=== PATIENT | male | born 1975 | race Caucasian/White ===

== ENCOUNTER 2020-02-01 12:07 | Inpatient (IN) | payer OTHER ==
[2020-02-01] VITALS (11 sets, daily range): BP systolic 134–149; BP diastolic 78–99; PULSE 84–106; TEMP 98.3–98.9
[~2020-02-01] VITALS: Ht 185.4 cm; Wt 125.5 kg
[2020-02-01] MEDS ORDERED: LANTUS100 U/ML SQ (12:21)
[2020-02-01] MEDS ORDERED: GLUCOPHAGE1000 MG PO (12:21)
[2020-02-01] MEDS ORDERED: PRILOSEC 20MG20 MG PO (12:23)
[2020-02-01] MEDS ORDERED: MOTRIN 600600 MG/TAB PO (12:24)
--- NOTE | 2020-02-01 13:17 | NUR ---
Patient admitted into room 342. He is alert & oriented. Mother at bedside. Inital, 5 page, & med rec completed. Patient reports going to the doctor minimally, only if he has too. Blood sugar elevated-but he reports better than normal at 242. Ivf to Amanda from [facility] Will wait on to round.
--- NOTE | 2020-02-01 14:55 | NUR ---
PT BROUGHT DOWN TO CT IN WHEELCHAIR AND PLACED ON CT TABLE. MONITORING EQUIPMENT PLACED. IMAGES TAKEN AND SENT
--- NOTE | 2020-02-01 15:24 | NUR ---
0.5 MG VERSED AND 25 MCG FENTANYL GIVEN
--- NOTE | 2020-02-01 15:40 | NUR ---
PROCEDURE COMPLETED. FLUID COLLECTED IN STERILE CUP. MONITORING EQUIPMENT REMOVED. REPORT ACALLED TO SPENCER SAMUELS. MEDS GIVEN VERSED 1.5MG AND 75 MCG FENTANYL. ACCORDIAN DRAIN IN PLACE WITH REDDISH BROWN DRAINAGE. PT BACK TO FLOOR IN WHEECHAIR
--- NOTE | 2020-02-01 17:20 | NUR ---
1507 1 MG VERSED AND 50 MCG FENTANYL GIVEN
--- NOTE | 2020-02-01 19:45 | NUR ---
ASSESSMENT COMPLETE. RESTING IN BED. C/O OF "A LITTLE" PAIN RIGHT LOWER BACK R/T DRAIN INSERSTION. STATES THAT HE DOESN'T WANT ANY PAIN MEDICATION AND THAT HE WILL 'KEEP ON TOP OF IT". DENIES NEEDS AT THIS TIME.
--- NOTE | 2020-02-01 19:55 | NUR ---
Patient has done well since drain insertion, he was given one dose of Iv morphine for pain in buttocks. Iv antibioitcs as ordered & Ivf. He is tolerating clears. He remains in good spirits. Bedside report to night nurse
[2020-02-02 00:25] VITALS: BP 107/61; PULSE 81; TEMP 98.5
[2020-02-02 04:15] VITALS: BP 153/83; PULSE 78; TEMP 98.4
[2020-02-02 05:52] LABS: BASO % 0.2 % (0.0-2.0); EOS # 0.1 (0.0-0.7); EOS % 1.4 % (0-4.0); GRAN # 5.3 (1.4-6.5); HEMOGLOBIN 11.7 g/dl (13.5-18.0); LYMPH # 2.6 (1.2-3.4); LYMPH % 29.9 % (20.0-51.0); MEAN CELL VOLUME 78 fl (80.0-100.0); MEAN CORPUSCULAR HEMOGLOBIN 25 pg (27.0-31.0); MEAN CORPUSCULAR HGB CONC 32 g/dl (33.0-37.0); MEAN PLATELET VOLUME 10.6 fl (7.4-10.4); MONO # 0.6 (0.1-0.6); MONO % 7.3 % (1.7-9.3); PLATELET COUNT 316 K/mm3 (130-400); RED BLOOD COUNT 4.75 M/mm3 (4.20-5.60); REDCELL DISTRIBUTION WIDTH-CV 14.5 % (11.5-14.5)
[2020-02-02 05:54] LABS: HEMATOCRIT 36.9 % (42.0-52.0)
[2020-02-02 06:00] LABS: CALCIUM 8.9 mg/dL (8.4-10.2); CREATININE, serum 0.67 (0.66-1.25); POTASSIUM 3.9 mmol/L (3.4-5.0)
[2020-02-02 07:52] VITALS: BP 130/98; PULSE 90; TEMP 97.7
--- NOTE | 2020-02-02 08:00 | NUR ---
PATIENT IS A&O. VSS. TELE INPLACE. REPORTS ABD PAIN IS CURRENTLY WELL MANAGED. DENIES NEED FOR PAIN MEDS AT THIS TIME. PATIENT ASKING ABOUT ADVANCING HIS DIET TODAY. NURSING REFERRED TO SURGEON. TO ROUND SOON. ABD IS ROUND, SOFT AND WITH POSITIVE BOWL SOUNDS. PATIENT REPORTS HE IS PASSING GAS AND HAS HAD SOME LOOSE STOOLS. NO C/O N/V. AM BS WAS 150, NO SSI REQUIRED. TOLERATING LIQUIDS WELL. IV FLUIDS INFUSING INTO RIGHT WRIST IV. PATIENT VOIDING SUFFICENT AMOUNTS. HEAD TO TOE ASSESSMENT WNL. PATIENT INDEPENDENT IN ROOM. NO OTHER NEEDS.
[2020-02-02 11:22] VITALS: BP 138/52; PULSE 77; TEMP 97.4
--- NOTE | 2020-02-02 14:24 | NUR ---
Plan: To return home in [place]. Patient resides Alone. Assess: Patient rpeorts that he lives close to his mother and if he needs help he can call her. Patient reports that he may not be able to get his medications and usually fills the at [facility] in [place]. Patient shares that his PCP is Maite Galindo. EMR contact is Pamela Oreilly (Mother) . Patient denies the use of HHS or having a POA. Action: Educated on supports and services available to him . SW offered medication voucher if had to obtain medications. Educated on location and Pharmacy.
[2020-02-02 15:49] VITALS: BP 94/59; PULSE 93; TEMP 97.7
[2020-02-02 20:25] VITALS: BP 155/96; PULSE 102; TEMP 98.3
[2020-02-03 04:09] VITALS: BP 133/71; PULSE 69; TEMP 97.7
--- NOTE | 2020-02-03 05:25 | NUR ---
THERE WERE 20 mL OF DRAINAGE IN ACCORDION DRAIN AT BEGINNING OF SHIFT. NO NEW DRAINAGE OF 0400 THIS MORNING. PT [facility] BE[facility]. AFEBRILE.
--- NOTE | 2020-02-03 07:00 | NUR ---
Report received from ARVIND [place]. PT in bed resting, feeling well, denies needs, will continue to monitor.
[2020-02-03 07:34] VITALS: BP 147/73; PULSE 87; TEMP 97.7
--- NOTE | 2020-02-03 08:00 | NUR ---
Assessment charted. Pt feeling well, drain above R buttock is draining small amount of SS fluid. Pt states pain is better now but denies need to take any medication. Resting at sideo f bed with IV antibiotics to RW. Anticipating getting drain d/c'd today if possible. Will continue to monitor.
[2020-02-03 10:05] LABS: HEMATOCRIT 37.6 % (42.0-52.0); HEMOGLOBIN 11.8 g/dl (13.5-18.0); MEAN CELL VOLUME 78 fl (80.0-100.0); MEAN CORPUSCULAR HEMOGLOBIN 24 pg (27.0-31.0); MEAN CORPUSCULAR HGB CONC 31 g/dl (33.0-37.0); MEAN PLATELET VOLUME 10.5 fl (7.4-10.4); PLATELET COUNT 343 K/mm3 (130-400); RED BLOOD COUNT 4.83 M/mm3 (4.20-5.60); REDCELL DISTRIBUTION WIDTH-CV 14.5 % (11.5-14.5)
[2020-02-03 10:42] LABS: ANISOCYTOSIS 1+; BAND 3 % (0-10); EOSINOPHIL 4 % (0-4); NEUTROPHILS 53 % (42.0-75.2); PLATELET ESTIMATE NORMAL (NORMAL); SPHEROCYTE 1+
[2020-02-03 11:04] LABS: LYMPHOCYTE 33 % (20.0-51.0)
[2020-02-03 11:43] VITALS: BP 155/89; PULSE 72; TEMP 98.7
[2020-02-03 16:14] VITALS: BP 143/87; PULSE 72; TEMP 98.4
--- NOTE | 2020-02-03 18:19 | NUR ---
Pt has done well over shift. Resting in bed quietly after showering today. Per pt he "hasnt felt this good in weeks". PRN pain meds givenx1 per request. Will give bedside shift report to vishal jolly who will resume care.
--- NOTE | 2020-02-03 19:00 | NUR ---
PATIENT RESTING IN BED DURING CHANGE OF SHIFT REPORT FROM DAY SHIFT NURSE. REPORTS PAIN MEDS GIVEN EARLIER IS "BRINGING IT DOWN" REFERING TO PAIN LEVEL TO RIGHT LOWER BACK/UPPER BUTTOCK PAIN. DENIES ANY NEEDS DURING TIME OF REPORT. UP INDEPENDENTLY IN ROOM/HALLS.
[2020-02-03 20:09] VITALS: BP 154/95; PULSE 88; TEMP 97.5
[2020-02-04 00:21] VITALS: BP 150/83; PULSE 71; TEMP 98.2
--- NOTE | 2020-02-04 02:00 | NUR ---
PATIENT RESTING WITH EYES CLOSED, BREATHING NONLABORED AND EVEN. DOES NOT AWAKEN WHEN ROOM ENTERED BY STAFF. UP INDEPENDENTLY IN ROOM WITH NO PROBLEMS.
[2020-02-04 05:05] VITALS: BP 106/65; PULSE 74; TEMP 97.8
[2020-02-04 07:32] VITALS: BP 138/72; PULSE 86; TEMP 97.1
--- NOTE | 2020-02-04 08:00 | NUR ---
Patient resting in bed at this time. Patient rouses easily and is alert and oriented while awake. Dressing to drain site is CDI. Patient denies pain or needs at this time, call light within reach.
--- NOTE | 2020-02-04 08:13 | NUR ---
PATIENT SITTING ON SIDE OF BED DURING CHANGE OF SHIFT REPORT GIVEN TO DAY SHIFT NURSE. IV MED INFUSING WITH NO PROBLEMS.
[2020-02-04 10:01] LABS: CALCIUM 8.9 mg/dL (8.4-10.2); CREATININE, serum 0.81 (0.66-1.25)
[2020-02-04 11:40] VITALS: BP 151/87; PULSE 84; TEMP 97.8
[2020-02-04] MEDS ORDERED: AMOXICILLIN 8751 TAB PO (15:45)
[2020-02-04 15:53] VITALS: BP 155/99; PULSE 75; TEMP 98.4
--- NOTE | 2020-02-04 16:27 | NUR ---
Discharge teaching completed. Discharge instructions, discharge medications, and follow up appointments were discussed. Patient verbalized understaning and denies questions or concerns. Patient escorted to ED entrance where he entered a private vehicle.
== END 2020-02-04 16:31 | disposition home or self-care (01) | DRG 373 ==
LOC: SURG 12:07
PROVIDERS: Student in an Organized Health Care Education/Training Program; ADMIT Surgery
PROC: 0W9G30Z Drainage of Peritoneal Cavity with Drainage Device, Percutaneous Approach (ICD-10-PCS; principal; 2020-02-01)
DX: K65.1 Peritoneal abscess (principal); E11.9 Type 2 diabetes mellitus without complications; E66.9 Obesity, unspecified; I10 Essential (primary) hypertension; B96.20 Unspecified Escherichia coli [E. coli] as the cause of diseases classified elsewhere; Z68.36 Body mass index [BMI] 36.0-36.9, adult; Z79.4 Long term (current) use of insulin; Z87.891 Personal history of nicotine dependence
CPT/HCPCS: 99222; 99232-AI; C1729; J1815; J1956; J2270; J2543; J7030

== ENCOUNTER 2020-03-28 20:06 | Inpatient (IN) | payer SELFPAY ==
[~2020-03-28] VITALS: Ht 185.4 cm; Wt 121.1 kg
[~2020-03-28 20:06] MED LIST: AMOXICILLIN 8751 TAB PO; GLUCOPHAGE1000 MG PO; LANTUS100 U/ML SQ; MOTRIN 600600 MG/TAB PO; PRILOSEC 20MG20 MG PO
--- NOTE | 2020-03-28 22:00 | NUR ---
Arrived via EMS. Lungs clear. Heart sounds normal. Bowels active x4. Pulses present throughout. No edema noted. INT right hand without complications. Orientated patient to medical floor. Dr. Aponte and Kamryn LOU in room to see patient.
[2020-03-28] MEDS ORDERED: TYLENOL 8 HR PO (22:21)
[2020-03-28 22:36] VITALS: BP 151/94; PULSE 112; TEMP 98.4
[2020-03-28 23:36] VITALS: BP 151/85; PULSE 102; TEMP 98.7
--- NOTE | 2020-03-28 23:50 | NUR ---
Patient swabbed for COVID as ordered. Fluids started. Provided with dilaudid for 4/10 ABD pain. Denies other needs at this time.
[2020-03-29 00:02] LABS: LACTIC ACID 2.4 mmol/L (0.4-2.0)
[2020-03-29 03:49] VITALS: BP 134/90; PULSE 78; TEMP 98.2
--- NOTE | 2020-03-29 06:05 | NUR ---
Patient had uneventful night. Resting in bed this AM. Denies needs. Call light in reach.
--- NOTE | 2020-03-29 06:57 | NUR ---
Report given to ARVIND Nevarez
[2020-03-29 09:36] VITALS: BP 142/87; PULSE 80; TEMP 98.2
--- NOTE | 2020-03-29 09:53 | NUR ---
Pt awake and alert upon entry, no C/O pain at this time, shift assessments complete, left Pt call light in reach, bed in lowest position.
[2020-03-29 10:05] LABS: BASO % 0.4 % (0.0-2.0); EOS # 0.1 (0.0-0.7); EOS % 1.1 % (0-4.0); GRAN # 5.3 (1.4-6.5); GRAN % 65.1 % (42.2-75.2); HEMATOCRIT 41.4 % (42.0-52.0); HEMOGLOBIN 13.4 g/dl (13.5-18.0); LYMPH # 2.1 (1.2-3.4); LYMPH % 26.1 % (20.0-51.0); MEAN CELL VOLUME 75 fl (80.0-100.0); MEAN CORPUSCULAR HEMOGLOBIN 24 pg (27.0-31.0); MEAN CORPUSCULAR HGB CONC 32 g/dl (33.0-37.0); MONO # 0.6 (0.1-0.6); MONO % 7.2 % (1.7-9.3); PLATELET COUNT 425 K/mm3 (130-400); RED BLOOD COUNT 5.54 M/mm3 (4.20-5.60); REDCELL DISTRIBUTION WIDTH-CV 15.9 % (11.5-14.5)
[2020-03-29 10:11] LABS: CALCIUM 8.4 mg/dL (8.4-10.2); CREATININE, serum 0.67 (0.66-1.25)
[2020-03-29 12:03] VITALS: BP 147/85; PULSE 18; TEMP 98.4
[2020-03-29 16:15] VITALS: BP 151/87; PULSE 86; TEMP 98.5
--- NOTE | 2020-03-29 19:10 | NUR ---
Pt resting in the room, no C/O pain throughout the day, Pt has been OOB adlib today. VS have remained stable.
[2020-03-29 20:27] VITALS: BP 154/89; PULSE 76; TEMP 97.4
--- NOTE | 2020-03-29 20:35 | NUR ---
Resting in bed. Assessment complete. Bases bilaterally dimished otherwise clear. Heart sounds normal. Bowels active x4. Pulses strong throughout. No edema noted. IV right hand infusing without difficulty. Reports intermittent pain across ABD. Denies need for intervention at this time. Denies other needs. call light in reach. Will monitor.
[2020-03-29 23:33] VITALS: BP 150/98; PULSE 67; TEMP 98
--- NOTE | 2020-03-30 | NUR ---
Resting in bed. Denies needs. Call light in reach.
--- NOTE | 2020-03-30 04:00 | NUR ---
Patient resting in bed. Denies needs. Call light in reach.
[2020-03-30 04:45] VITALS: BP 146/74; PULSE 68; TEMP 98.7
--- NOTE | 2020-03-30 06:39 | NUR ---
Patient had uneventful night. Required x1 dose of dilaudid for pain control. Resting in this AM. Call light in reach.
--- NOTE | 2020-03-30 06:53 | NUR ---
Report given to ARVIND Nevarez
[2020-03-30 07:19] LABS: BASO % 0.3 % (0.0-2.0); EOS # 0.1 (0.0-0.7); EOS % 1.6 % (0-4.0); GRAN # 3.5 (1.4-6.5); HEMATOCRIT 41.9 % (42.0-52.0); HEMOGLOBIN 13.1 g/dl (13.5-18.0); LYMPH # 2.5 (1.2-3.4); LYMPH % 36.9 % (20.0-51.0); MEAN CELL VOLUME 77 fl (80.0-100.0); MEAN CORPUSCULAR HEMOGLOBIN 24 pg (27.0-31.0); MEAN CORPUSCULAR HGB CONC 31 g/dl (33.0-37.0); MEAN PLATELET VOLUME 10.3 fl (7.4-10.4); MONO # 0.6 (0.1-0.6); MONO % 8.9 % (1.7-9.3); PLATELET COUNT 383 K/mm3 (130-400); RED BLOOD COUNT 5.48 M/mm3 (4.20-5.60)
[2020-03-30 07:28] LABS: ALBUMIN 3.4 gm/dL (3.5-5.0); BILIRUBIN,TOTAL 0.5 mg/dL (0.0-1.0); CALCIUM 8.7 mg/dL (8.4-10.2); CREATININE, serum 0.76 (0.66-1.25); TOTAL PROTEIN 6.6 gm/dL (6.4-8.2)
--- NOTE | 2020-03-30 09:03 | NUR ---
Pt awake and alert upon entry, no C/O pain at this time, shift assessments complete, left Pt sitting on side of bed eating breakfast.
[2020-03-30 09:52] VITALS: BP 154/88; PULSE 78; TEMP 98.3
[2020-03-30 13:04] VITALS: BP 153/89; PULSE 68; TEMP 98.2
[2020-03-30 16:05] VITALS: BP 1155/81; PULSE 66; TEMP 98.8
--- NOTE | 2020-03-30 20:25 | NUR ---
Pt resting in the room today, no C/O pain or other issues noted, VS have remained stable
--- NOTE | 2020-03-30 20:40 | NUR ---
Received report from Roque. He tried to reinsert IV but failed. Patient is alert and oriented. Denies any pain. He is independent. Blood pressure is elevated at 168/87. This nurse tried to reinsert IV but failed as well. Will let charge nurse know and let him try.
[2020-03-30 20:41] VITALS: BP 168/87; PULSE 69; TEMP 98.3
--- NOTE | 2020-03-30 21:40 | NUR ---
Burt SAMUELS, was able to insert a peripheral line at right hand G22. Hydralazine PRN given.
[2020-03-31 00:48] VITALS: BP 155/90; PULSE 68; TEMP 98.6
[2020-03-31 04:02] VITALS: BP 150/73; PULSE 68; TEMP 98.2
--- NOTE | 2020-03-31 06:14 | NUR ---
Patient had an uneventful night. Denies any pain. Patient verbalizes he wants to go home today. Will endorse to day shift nurse.
[2020-03-31 07:28] VITALS: BP 147/92; PULSE 84
--- NOTE | 2020-03-31 07:44 | NUR ---
PATIENT CALLED C/O RIGHT HAND PAIN. 22 G IV TO RIGHT HAND WITH LR INFUSING VIA INFUSION PUMP @ 100ML/HR. UPON OBSERVATION RIGHT HAND WITH 2+ INFILRATION. PATIENT DENIES NUMBNESS AND TINGLING. SENSATION INTACT ABLE TO MOVE FINGERS. RADIAL/ULNAR PULSES 2+. DISCUSSED INFILTARION WITH PATIENT. ENCOURAGED TO ELEVATE AND PERFORM RANGE OF MOTION. WILL PROVIDE WARM COMPRESS.
--- NOTE | 2020-03-31 10:45 | NUR ---
PATIENT DC TO HOME ORDERED BY DR MOODY. PER DR STEELE HE IS NOT ROUNDING ON PATIENT PRIOR TO DC HE IS ONLY CONSULTING. DISCUSSED DOCUMENTED HYPERTENSION. NO NEW ORDERS RECEIVED. DISCHARGE INSTRUCTIONS TO INCLUDE MEDICATIONS, FOLLOW UP, AND MONITORING HTN REVIEWED WITH PATIENT. ACKNOWLEDGED UNDERSTANDING AND ALL QUESTIONS AND CONCERNS ADDRESSED DURING REVIEW.
--- NOTE | 2020-03-31 13:49 | NUR ---
Patient DC to home via POV @ 1240. Ambulated off floor accompanied by this nurse. No concerns at time of DC.
--- NOTE | 2020-03-31 13:55 | NUR ---
Radial Saw Operator contacted patient by phone to discuss discharge planning as patient is COVID positive. Patient lives in alone in [place] and sees Dr. Isela Dela Cruz for primary care. [facility] Patient advised he can afford his medications but hates spending money on them. SW inquired about patient's insurance coverage as he is showing up as self pay on the census. Patient reports he has [employer] and his coverage began a few weeks ago. [employer] provided this update to Dahlia Financial Counselor via email. Patient advised he works at [employer]. Patient checks his blood sugar at home and uses no other DME. Patient is independent with ADLS and plans to return home upon discharge. Patient's mother Vida (ph#[phone]) will pick him up upon discharge. No needs identified at this time.
== END 2020-03-31 12:40 | disposition home or self-care (01) | DRG 388 ==
LOC: PEDS 20:06
PROVIDERS: Nurse Practitioner Family; ADMIT Surgery
DX: K56.50 Intestinal adhesions [bands], unspecified as to partial versus complete obstruction (principal); U07.1 COVID-19; F17.210 Nicotine dependence, cigarettes, uncomplicated; E11.9 Type 2 diabetes mellitus without complications; Z79.4 Long term (current) use of insulin; Z79.84 Long term (current) use of oral hypoglycemic drugs; I10 Essential (primary) hypertension
CPT/HCPCS: 99223; 99232-AI; J0360; J1170; J1815; J7120